=== PATIENT | male | born 1995 | race Caucasian/White ===

== ENCOUNTER 2019-08-19 18:40 | Emergency (ER) | payer OTHER ==
--- NOTE | 2019-08-19 19:46 | EDM.PDOC ---
ED HPI GENERAL MEDICAL PROBLEM - General Chief Complaint: Upper Extremity Injury/Pain Stated Complaint: arm hand injury Time Seen by Provider: 08/19/19 18:56 Source of Information: Reports: Patient History Limitations: Reports: No Limitations - History of Present Illness INITIAL COMMENTS - FREE TEXT/NARRATIVE: Patient is a 23-year-old male who presents with right hand pain and swelling. Patient states he was walking his dog when he slipped on the ice landing on his hand. He complains of pain in the area of the fourth metacarpal below the MCP joint. He is able to move his fingers, however it is painful. Right Hand Pain Score (Numeric/FACES): 8 - Related Data Allergies Allergy/AdvReac Type Severity Reaction Status Date / Time No Known Allergies Allergy Verified 08/19/19 18:55 Home Meds: Home Meds Multivitamin [Daily Multiple Vitamin] 1 tab PO DAILY 08/19/19 [History] Past Medical History Musculoskeletal History: Reports: Fracture - Past Surgical History GI Surgical History: Reports: Appendectomy Social & Family History - Family History Family Medical History: Noncontributory - Caffeine Use Caffeine Use: Reports: Coffee, Energy Drinks, Soda, Tea - Recreational Drug Use Recreational Drug Use: No Review of Systems - Review of Systems Review Of Systems: Comprehensive ROS is negative, except as noted in HPI. ED EXAM, GENERAL - Physical Exam Exam: See Below Exam Limited By: No Limitations General Appearance: Alert, WD/WN, No Apparent Distress Respiratory/Chest: No Respiratory Distress, Lungs Clear, Normal Breath Sounds, No Accessory Muscle Use, Chest Non-Tender Cardiovascular: Normal Peripheral Pulses, Regular Rate, Rhythm, No Edema, No Gallop, No JVD, No Murmur, No Rub Extremities: Normal Inspection, Normal Capillary Refill, Other (Pain and swelling to the right hand in the area of the fourth metacarpal proximal to the MCP joint) Course - Vital Signs Last Recorded V/S: Last Vital Signs Temp 98.4 F 08/19/19 18:52 Pulse 98 08/19/19 18:52 Resp 15 08/19/19 18:52 BP 147/80 H 08/19/19 18:52 Pulse Ox 97 08/19/19 18:52 - Orders/Labs/Meds Orders: Active Orders 24 hr Category Date Time Status Hand Comp Min 3V Rt [CR] Stat Exams 08/19/19 18:57 Taken - Re-Assessments/Exams Free Text/Narrative Re-Assessment/Exam: 08/19/19 19:43 X-ray does show a fracture to the proximal portion of the fourth metacarpal. Patient was placed in a ulnar gutter splint. We will have him follow-up with orthopedics in approximately 1 week. Discharge instructions as documented. Departure - Departure Time of Disposition: 19:44 Disposition: Home, Self-Care 01 Condition: Fair Clinical Impression: Fracture of metacarpal bone Qualifiers: Encounter type: initial encounter Metacarpal bone: fourth Fracture type: closed Metacarpal location: shaft Fracture alignment: nondisplaced Laterality: right Qualified Code(s): S62.354A - Nondisplaced fracture of shaft of fourth metacarpal bone, right hand, initial encounter for closed fracture - Discharge Information *PRESCRIPTION DRUG MONITORING PROGRAM REVIEWED*: No *COPY OF PRESCRIPTION DRUG MONITORING REPORT IN PATIENT EMELY: No Instructions: Metacarpal Fracture, [id number] Referrals: PCP,None [Primary Care Provider] - Chau Blandon MD [Physician] - Forms: ED Department Discharge, ED Return to Work/School Form Additional Instructions: You were seen in the emergency department today for pain and swelling to your right hand. X-ray does show that you have a fracture to the fourth metacarpal. A splint was applied to your hand. Leave this intact until seen by orthopedics. I recommend that you elevate the extremity when at rest and you may ice over the splint for 20 minutes every 2 hours as needed. You may also use Tylenol or ibuprofen as needed for pain. Call to schedule an appointment with Dr. Blandon for next week. The phone number to schedule an appointment with him as listed below. If you should develop any concerning symptoms, please not hesitate to return to the emergency department. Sepsis Event Note - Evaluation Sepsis Screening Result: No Definite Risk - Focused Exam Vital Signs: Vital Signs Temp Pulse Resp BP Pulse Ox 08/19/19 18:52 98.4 F 98 15 147/80 H 97 Date Exam was Performed: 08/19/19 Time Exam was Performed: 19:41 - My Orders Last 24 Hours: My Active Orders 08/19/19 18:57 Hand Comp Min 3V Rt [CR] Stat - Assessment/Plan Last 24 Hours: My Active Orders 08/19/19 18:57 Hand Comp Min 3V Rt [CR] Stat
--- NOTE | 2019-08-20 07:43 | CR ---
Right hand: Four views of the right hand were obtained. Comparison: No prior right hand exam is available. Joint spaces are preserved. Fracture is identified within the proximal and mid shaft of the 4th metacarpal. Minimal displacement is seen. No additional fracture or other bony abnormality is identified. Soft tissue swelling is seen. Impression: 1. Minimally displaced 4th metacarpal fracture. 2. Soft tissue swelling. Diagnostic code #3 This report was dictated in [place] Standard Time
== END 2019-08-19 20:05 | disposition home or self-care (01) ==
LOC: JD.ED 18:40
DX: S62.354A Nondisplaced fracture of shaft of fourth metacarpal bone, right hand, initial encounter for closed fracture (principal); W00.0XXA Fall on same level due to ice and snow, initial encounter; Y93.K1 Activity, walking an animal
CPT/HCPCS: 29125; 73130-26-RT; 73130-RT; 99282; 99283-25